=== PATIENT | male | born 1965 | race Caucasian/White ===

== ENCOUNTER 2023-12-20 20:58 | Emergency (ER) | payer OTHER, SELFPAY ==
[2023-12-20 21:00] VITALS: BP 139/88
--- NOTE | 2023-12-20 21:37 | ED.GENMED ---
History of Present Illness
General
Chief Complaint: Head Injury
Source: patient and family
Exam Limitations: none
Time Seen by Provider: 12/20/23 21:23
History of Present Illness
History of Present Illness:
Pleasant 58-year-old male that presents with head injury. He was doing some gardening and had a 50 pound rock bounced on his truck. It flew back hitting him in the head. He sustained a blow directly to his tenriism. He denies loss of
consciousness. He has no blurry vision or confusion. He does report some swelling on the forehead with tenderness to palpation. Reports no other injuries. Significant other states that she brought him in because his daughter is getting
in a week and they want to make sure there is no complications from this injury.
Past History
Past History
ED Past Medical History: GERD
ED Past Surgical History: None
Social History
Tobacco: Non-smoker
Alcohol: Occasional
Drug: None
Personal:
Living: with family
Employment: Employed
Review of Systems
Review of Systems
Allergies reviewed?: Yes
All Other Systems: ROS reviewed and negative except as documented in HPI and ROS
Constitutional: Reports no symptoms
EENT: Reports no symptoms
Respiratory: Reports no symptoms
Cardiac: Reports no symptoms
ABD/GI: Reports no symptoms
: Reports no symptoms
Musculoskeletal: Reports no symptoms
Skin: Reports no symptoms
Neurological: Reports headache
Endocrine: Reports no symptoms
Hematologic/Lymphatic: Reports no symptoms
Psychiatric: Reports anxiety
Phy Exam
General Physical Exam
General Presentation: well appearing and no apparent distress
General Skin: warm and dry
General Habitus: normal
General Mental: alert
General Hydration: appears well hydrated
ENT Exam
ENT Exam: EOMI, pharynx normal, neck supple and normocephalic
Eye Exam
Eye Exam: PERRL, cornea clear and conjunctiva normal
Cardiovascular Exam
Cardiovascular Exam: regular rate/rhythm, no edema, no murmur and normal peripheral pulses
Pulmonary Exam
Pulmonary Exam: lungs clear, no respiratory distress, no rales, no crackles, no rhonchi, no stridor, no wheezing and no cough
Gastrointestinal Exam
Gastrointestinal Exam: non distended
Neurological Exam
Neurological Exam: alert, oriented x3, no motor deficits and speech normal
Musculoskeletal Exam
Musculoskeletal Exam: full ROM and no edema
Skin Exam
Skin Exam: normal color, warm/dry, no rash and no petechia
Psychiatric Exam
Psychiatric Exam: normal mood/affect
Scores
PECARN >2 YEARS
GCS <15: No
Signs basilar skull fracture: No
LOC: No
Patient vomiting: No
Severe headache: No
Severe mechanism: Yes
If any criteria positive, consider head CT: Yes
Course
Orders/Labs/Results
Orders:
Orders
12/20/23 21:35
CT Head W/o Iv Contrast Urgent
Comment:
Reason For Exam: hit in r tenriism with 50lb rock
Vital Signs
Initial and Last Documented VS:
Initial Vital Signs
Temp Pulse Resp BP Pulse Ox
98.1 F 68 18 139/88 98
12/20/23 21:00 12/20/23 21:00 12/20/23 21:00 12/20/23 21:00 12/20/23 21:00
Last Documented Vital Signs
Temp Pulse Resp BP Pulse Ox
98.1 F 68 18 139/88 98
12/20/23 21:00 12/20/23 21:00 12/20/23 21:00 12/20/23 21:00 12/20/23 21:00
*Critical Care Note
Total Time (30-74mins, 75-104mins- exclusive of procedures): Not Applicable
Update Note
Update Note:
12/20/2023 2140 PM: Through shared decision-making, patient requested CT scan of the head
ED Attending Note
-
Portions of this chart may have been created with voice recognition software.� Occasional wrong word or��sound alike� substitutions may have occurred due to the inherent limitations of voice recognition software.
Discharge Plan
Departure
Patient Disposition: Home (Routine Discharge)
Date of Disposition: 12/20/23
Time of Disposition: 22:33
Patient with high blood pressure during this ER visit?: Yes
Condition: Good
Discharge Problem:
Head injury, Hematoma
Instructions: Wound Care (DC), Head Injury in Adults (DC), BLOOD PRESSURE
Prescriptions:
No Action
epinephrine [EpiPen] 0.3 mg/0.3 mL auto-injector
0.3 mg IM .STAT PRN (Reason: anaphylaxis) Qty: 2 0RF
prednisone 50 mg tablet
50 mg PO DAILY Qty: 5 0RF
Referrals:
Garrett Akhtar DO [Family Provider] -
Activity Restrictions/Additional Instructions:
It was a pleasure meeting you and taking part in your care. We hope for your continued healing and wellness.
Please read discharge instructions in their entirety. However, they are for general education and may not describe your exact diagnosis at discharge. Information on your ER visit and medical conditions were discussed with you along with appropriate
follow up information...
If indicated, please take your medications as instructed and indicated on discharge paperwork.
Please schedule a follow up appointment as directed. Call to schedule an appointment
Please return to the emergency department with ANY change in, persisting, or worsening of symptoms. If any of your symptoms do not improve, or persist, or become more severe within 6-12 hours, please return to the emergency department for further
care.
Please return to the emergency department if you develop a headache, neck pain/stiffness, fever greater than 100.4F, chest pain, shortness of breath, persistent nausea, vomiting, slurred speech, difficulty walking, numbness/tingling, weakness, signs
of infection or any other symptoms that are worrisome to you.
If you have any questions or concerns please do not hesitate to call the Hospital at or E-mail me directly at [email or web address]
Interventions
Interventions:
*Risk Screen - Suicide Last Done: 12/20/23 21:25
*General Assessment Last Done: 12/20/23 21:25
*Neglect/Abuse Screening Last Done: 12/20/23 21:45
ED- Fall Risk Assessment Last Done: 12/20/23 21:45
*ED COVID-19 Vaccine History Last Done: 12/20/23 21:45
*Nursing Disposition Last Done: 12/20/23 22:44
ED- Neurological Assessment Last Done: 12/20/23 21:25
ED-Skin Assessment Last Done: 12/20/23 21:25
Discharge Date and Time
Discharge Date/Time: 12/20/23 22:44
Print Language: TURKISH
== END 2023-12-20 22:44 | disposition home or self-care (01) ==
LOC: EMR 20:58
PROVIDERS: EMERGENCY PHYSICIAN Student in an Organized Health Care Education/Training Program; FAMILY PHYSICIAN Family Medicine
DX: S09.90XA Unspecified injury of head, initial encounter (principal); S00.03XA Contusion of scalp, initial encounter; W20.8XXA Other cause of strike by thrown, projected or falling object, initial encounter
CPT/HCPCS: 99284; 70450

== ENCOUNTER 2024-12-30 16:57 | Emergency (ER) | payer OTHER, SELFPAY ==
[2024-12-30 17:00] VITALS: BP 140/79
[2024-12-30 18:51] VITALS: BP 129/80
[2024-12-30 18:53] VITALS: BMI 23.5
--- NOTE | 2024-12-30 18:57 | ED.GENMED ---
History of Present Illness
<Kareem Duke MD, Resident - Last Filed: 12/30/24 19:30>
General
Chief Complaint: Allergic Reaction
Source: patient
Exam Limitations: none
Time Seen by Provider: 12/30/24 18:46
Nursing documentation reviewed up to this point in time: agreed with
History of Present Illness
History of Present Illness:
This is a 59-year-old male with history of GERD reportedly stable, presenting to the emergency department today after he was stung by bees 5�6 times on both lower extremities mostly around the ankles. Patient reported that this happened around 4
PM. 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
Denies any fevers, chills, chest pain, trouble breathing, diarrhea/constipation or any urinary symptoms, denies any headache, any change in vision, any difficulty speaking. Denies any obvious swelling of the lips. Denies any difficulty swallowing.
Past History
<Kareem Duke MD, Resident - Last Filed: 12/30/24 19:30>
Past History
ED Past Medical History: GERD
ED Past Surgical History: None
Social History
Tobacco: Non-smoker
Alcohol: Occasional
Drug: None
Personal:
Living: with family
Employment: Employed
Family History
Family History: Other (Noncontributory)
Review of Systems
<Kareem Duke MD, Resident - Last Filed: 12/30/24 19:30>
Review of Systems
Allergies reviewed?: Yes
All Other Systems: ROS reviewed and negative except as documented in HPI and ROS
Constitutional: Reports no symptoms
EENT: Reports no symptoms
Respiratory: Reports no symptoms
Cardiac: Reports no symptoms
ABD/GI: Reports no symptoms
: Reports no symptoms
Musculoskeletal: Reports no symptoms
Skin: Reports no symptoms
Neurological: Reports headache
Endocrine: Reports no symptoms
Hematologic/Lymphatic: Reports no symptoms
Psychiatric: Reports no symptoms
Phy Exam
<Kareem Duke MD, Resident - Last Filed: 12/30/24 19:30>
General Physical Exam
General Presentation: well appearing and no apparent distress
General Skin: warm and dry
General Habitus: normal
General Mental: alert
General Hydration: appears well hydrated
ENT Exam
ENT Exam: EOMI, pharynx normal, neck supple and normocephalic
Eye Exam
Eye Exam: PERRL, cornea clear and conjunctiva normal
Cardiovascular Exam
Cardiovascular Exam: regular rate/rhythm, no edema, no murmur and normal peripheral pulses
Pulmonary Exam
Pulmonary Exam: lungs clear, no respiratory distress, no rales, no crackles, no rhonchi, no stridor, no wheezing and no cough
Gastrointestinal Exam
Gastrointestinal Exam: non distended
Neurological Exam
Neurological Exam: alert, oriented x3, no motor deficits and speech normal
Musculoskeletal Exam
Musculoskeletal Exam: full ROM and no edema
Skin Exam
Skin Exam: normal color, warm/dry, no rash, no petechia and other (Multiple insect bites on bilateral lower extremities)
Psychiatric Exam
Psychiatric Exam: normal mood/affect
Course
<Kareem Duke MD, Resident - Last Filed: 12/30/24 19:30>
Vital Signs
Initial and Last Documented VS:
Initial Vital Signs
Temp Pulse Resp BP Pulse Ox
98.4 F 74 18 140/79 95
12/30/24 17:00 12/30/24 17:00 12/30/24 17:00 12/30/24 17:00 12/30/24 17:00
Last Documented Vital Signs
Temp Pulse Resp BP Pulse Ox
98.4 F 74 18 129/80 100
12/30/24 17:00 12/30/24 17:00 12/30/24 17:00 12/30/24 18:51 12/30/24 18:57
<Joseph Dhaliwal, DO - Last Filed: 12/30/24 19:23>
Vital Signs
Initial and Last Documented VS:
Initial Vital Signs
Temp Pulse Resp BP Pulse Ox
98.4 F 74 18 140/79 95
12/30/24 17:00 12/30/24 17:00 12/30/24 17:00 12/30/24 17:00 12/30/24 17:00
Last Documented Vital Signs
Temp Pulse Resp BP Pulse Ox
98.4 F 74 18 129/80 100
12/30/24 17:00 12/30/24 17:00 12/30/24 17:00 12/30/24 18:51 12/30/24 18:57
<Kareem Duke MD, Resident - Last Filed: 12/30/24 19:30>
MDM/Problems Addressed
Differential Diagnosis Includes:
Insect bite
MDM/Problems Addressed:
There is no indication of any medications at this time. Advised to keep area clean. Do not scratch it. With cold, damp washcloth on area top with the swelling and itching. And advised to use [id number] medication for pain like Tylenol,
ibuprofen or naproxen. Can use Zyrtec for itching.
Vitals remained stable. Patient is stable for discharge. Patient voices understanding agree with the plan
<Kareem Duke MD, Resident - Last Filed: 12/30/24 19:30>
*Pulse Oximetry
SaO2: 100
Oxygen Mode of Delivery: Room air
Patient hypoxic: no
*Critical Care Note
Total Time (30-74mins, 75-104mins- exclusive of procedures): Not Applicable
ED Attending Note
<Kareem Duke MD, Resident - Last Filed: 12/30/24 19:30>
-
Portions of this chart may have been created with voice recognition software.� Occasional wrong word or��sound alike� substitutions may have occurred due to the inherent limitations of voice recognition software.
<Joseph Dhaliwal DO - Last Filed: 12/30/24 19:23>
ED Attending Note
Patient seen and examined by attending physician: Yes
I performed a history and physical exam of patient and discussed management with resident, I reviewed resident's note and agree with documented findings and plan of care.: Yes
ED Attending Note:
I have seen and evaluated the patient with a [id number] encounter. I have spoken to the resident and involved in the medical history, the physical exam, medical decision making.
Evaluation and management service: agree unless noted differently below.
Results interpretation: agree unless noted differently below.
Focused HPI: 59-year-old male presenting for evaluation of multiple bee stings. This occurred around 4 PM. He states he was stung on his right and left leg multiple times. This has happened in the past but patient required epinephrine and
steroids for oral swelling. Patient was concerned that this might happen again so he came to the emergency department
Physical exam: Sitting in bed comfortably. No oral involvement or edema. Small erythema in bilateral calfs where he was stung
Medical Decision Making: Given that it has been over 3 hours after the bee sting with no medications given, we discussed low utility in starting epinephrine or steroids and discussed return precautions. Patient is very comfortable with being
discharged
Discharge Plan
Departure
Patient Disposition: Home (Routine Discharge)
Date of Disposition: 12/30/24
Time of Disposition: 19:21
Patient with high blood pressure during this ER visit?: Yes
Condition: Good
Discharge Problem:
Insect bite
Instructions: Insect bites and stings - ED discharge instructions, BLOOD PRESSURE
Prescriptions:
No Action
epinephrine [EpiPen] 0.3 mg/0.3 mL auto-injector
0.3 mg IM .STAT PRN (Reason: anaphylaxis) Qty: 2 0RF
prednisone 50 mg tablet
50 mg PO DAILY Qty: 5 0RF
Activity Restrictions/Additional Instructions:
You were seen in the outside hospital emergency department after being stung by bees on bilateral lower extremities. While you were in the emergency manage periodic physical exam showed no worrisome concerns. If you develop any difficulty
swallowing, any swelling around the lips or throat, difficulty talking, unbearable pain please return to the emergency department.
Interventions
Interventions:
*Risk Screen - Suicide Last Done: 12/30/24 17:01
*General Assessment Last Done: 12/30/24 17:01
*Neglect/Abuse Screening Last Done: 12/30/24 17:01
*ED- Fall Risk Assessment Last Done: 12/30/24 18:50
*ED COVID-19 Vaccine History Last Done: 12/30/24 18:50
ED- Cardiac Assessment Last Done: 12/30/24 18:50
ED- Pulmonary Assessment Last Done: 12/30/24 18:50
ED-Skin Assessment Last Done: 12/30/24 18:50
Discharge Date and Time
Print Language: ROMANIAN
[2024-12-30 19:37] VITALS: BP 133/81
== END 2024-12-30 20:05 | disposition home or self-care (01) ==
LOC: EMR 16:57
PROVIDERS: EMERGENCY PHYSICIAN Student in an Organized Health Care Education/Training Program; FAMILY PHYSICIAN Family Medicine
DX: T63.441A Toxic effect of venom of bees, accidental (unintentional), initial encounter (principal); L53.0 Toxic erythema
CPT/HCPCS: 99282